=== PATIENT | female | born 1970 | race Caucasian/White ===

== ENCOUNTER 2019-11-05 16:44 | Emergency (ER) | payer OTHER ==
[2019-11-05] MEDS ORDERED: Cephalexin 250 MG CAP ONE (17:51)
[2019-11-05] MEDS ORDERED: Lidocaine 1% (PF) 30 ML VIAL ONE (17:51)
[2019-11-05] MEDS ORDERED: cefTRIAXone\\ROCEPHIN 1 GM VIAL ONE (17:51)
[2019-11-05] MEDS ORDERED: Ibuprofen 800 MG TAB ONE (17:51)
--- NOTE | 2019-11-05 18:04 | RAD ---
2 VIEWS LEFT TIBIA AND FIBULA: Date: 11/05/2019 COMPARISON: None. HISTORY: Sore in lower portion of leg. FINDINGS: Two views of the left tibia/fibula shows no evidence of acute fracture or dislocation. Moderate diffu se soft tissue swelling is seen. No osseous erosions are seen. IMPRESSION: No evidence of acute osseous abnormality. POS: [facility]
[2019-11-05] MEDS ORDERED: Adacel (T-DAP) 0.5 ML SYRINGE ONE (19:07)
== END 2019-11-05 18:15 | disposition home or self-care (01) ==
LOC: NAV ERS 16:44
DX: L03.116 Cellulitis of left lower limb (principal); I10 Essential (primary) hypertension; E03.9 Hypothyroidism, unspecified; M79.7 Fibromyalgia; M06.9 Rheumatoid arthritis, unspecified; J45.909 Unspecified asthma, uncomplicated; F41.9 Anxiety disorder, unspecified; Z79.899 Other long term (current) drug therapy; Z79.51 Long term (current) use of inhaled steroids
CPT/HCPCS: 87070; 87205; 90471; 90715; 96372; J0696; J2001